=== PATIENT | male | born 1995 | race Caucasian/White ===

== ENCOUNTER 2024-08-10 08:33 | Emergency (ER) | payer MEDICAID, SELFPAY ==
[2024-08-10 08:34] VITALS: BMI 26.6
[2024-08-10 08:40] VITALS: BP 133/90; PULSE 104; RESP 16; TEMP 36.7; O2SAT 99; BMI 23.9
--- NOTE | 2024-08-10 09:00 | EDNOTE_ITS ---
ED Dental RME/HPI General Chief complaint: Allergic Reaction Stated complaint: MOUTH SWOLLEN SINCE LAST NIGHT Time Seen by Provider: 08/10/24 08:56 Source: patient, RN notes reviewed and old records reviewed Arrival date/time: 08/10/24 08:33 Mode of arrival: ambulatory Limitations: no limitations RME / HPI RME / HPI Narrative: 29yom presents to ED for mouth pain and sores. No sick contacts or recent illness. Patient reports pain with eating and swallowing. Denies fever, sob or vomiting. 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 Previous Rx's ?Medication ?Instructions ?Recorded acetaminophen 500 mg tablet 1,000 mg (2 x 500 mg) PO Q6H PRN 09/09/23 fever or pain #20 tabs ibuprofen 800 mg tablet 800 mg PO Q6H PRN pain #10 tabs 09/09/23 ondansetron 4 mg disintegrating 4 mg PO Q6H PRN nausea and 09/09/23 tablet vomiting #4 tabs hydrocodone 5 mg-acetaminophen 300 1 tab PO BID PRN pain #10 tabs 05/20/24 mg tablet ibuprofen 600 mg tablet 600 mg PO Q6H PRN fever or pain 08/10/24 #30 tabs lidocaine HCl 2 % mucosal solution See Rx Instructions .Route 08/10/24 (Lidocaine Viscous) .COMPLEX #60 mL valacyclovir 1 gram tablet 1,000 mg PO BID 7 days #14 tabs 08/10/24 amoxicillin 400 mg/5 mL oral 500 mg (6.25 mL) PO BID 10 days 08/11/24 suspension #125 mL ibuprofen 100 mg/5 mL oral 600 mg (30 mL) PO Q8H PRN fever or 08/11/24 suspension pain #473 mL Allergies Allergy/AdvReac Type Severity Reaction Status Date / Time Fish Containing Products Allergy Severe Swelling Verified 08/11/24 15:54 of Lip/Tongue/Throat peanut Allergy Severe Swelling Verified 08/11/24 15:54 of Lip/Tongue/Throat shrimp Allergy Severe SWELLING Verified 08/11/24 15:54 THROAT MARIJUANA Allergy Severe Swelling Uncoded 08/11/24 15:54 of Lip/Tongue/Throat Review of Systems Review of Systems Systems Reviewed: All systems reviewed, normal except as documented Constitutional Constitutional: Denies fever(s) ENT Ears, Nose, Mouth, and Throat: Reports mouth lesions and Reports sore throat Cardiovascular Cardiovascular: Denies dyspnea Respiratory Respiratory: Denies dyspnea Gastrointestinal Gastrointestinal: Reports nausea and Denies vomiting Past Medical History Past Medical History PSYCHO/SOCIAL: Positive Schizophrenia, Recreational Drug Use, Bipolar Disorder and Attention Deficit Hyperactivity Disorder Surgical History OTHER SURGICAL HX: Denies past surgical history Social History SMOKING STATUS: Current every day smoker SUBSTANCE USE: does not use ALCOHOL: Never ED Exam General Limitations: Present no limitations General appearance: Present alert and in no apparent distress Head Head exam: Present atraumatic and normocephalic Eye Eye exam: Present normal appearance, PERRL and EOMI ENT ENT exam: Present mucous membranes moist and other (Multiple ulcers to tongue and oral mucosa) Neck Neck exam: Present normal inspection and full ROM Chest Chest inspection: Present normal inspection and symmetric chest wall rise Respiratory Respiratory exam: Present normal lung sounds bilaterally; Absent respiratory distress, wheezes or stridor Cardiovascular Cardiovascular exam: Present regular rate and normal rhythm Extremities Exam Extremities exam: Present normal inspection and full ROM Neurological Exam Neurological exam: Present alert and oriented X3 Psychiatric Psychiatric exam: Present normal affect and normal mood Skin Skin exam: Present warm, dry, intact and normal color; Absent rash Course Quality Measures none Orders Category Date Time Status Acetaminophen Tab [Tylenol ES Tab] Med 08/10/24 09:02 Discontinued 1,000 mg PO X1 ONE Vital Signs Vital signs: Vital Signs Temperature 98.0 F 08/10/24 08:40 Pulse Rate 104 H 08/10/24 08:40 Respiratory Rate 16 08/10/24 08:40 Blood Pressure 133/90 H 08/10/24 08:40 Pulse Oximetry (%) 99 08/10/24 08:40 Oxygen Delivery Method Room Air 08/10/24 08:40 Dental / Oral MDM Narrative MDM Narrative:: 29yom presents to ED for mouth pain and sores. No sick contacts or recent illness. Patient reports pain with eating and swallowing. Denies fever, sob or vomiting. 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 Multiple oral ulcers on exam, suspect viral etiology. Patient is non-toxic appearing, afebrile, vitals are stable. Airway is patent and patient is able to tolerate po. Discussed symptomatic treatment, pain mgmt prn. Stable for dc, RTED precautions given. Patient data External records reviewed:: [facility] previous records (05/20/24 ED visit for toothache) Clinical information provided by:: patient Social determinants that could affect healthcare access:: other (specify) (poor access to healthcare) Patient has the following chronic illnesses:: bipolar, schizophrenia How is presenting disease/condition affected by chronic disease/condition?: uneffected by Evaluation data The following diagnostics were reviewed and interpreted by me:: other (specify) (none) Lab and/or radiology exams considered but not ordered:: none Interpretation Summary: na Medications / Prescriptions Medications or Prescriptions considered but not ordered:: no antibiotics recommended at [facility] time Medication administrations:: Medication Administration History Discontinued Medications Acetaminophen (Acetaminophen 500 Mg Tablet) 1,000 mg PO X1 ONE Stop: 08/10/24 09:03 Last Admin: 08/10/24 09:06 Dose: 1,000 mg Documented By: KF above medication administered in ED Consultations Consultation(s) initiated? (list below): No Diagnosis Dental Differential Diagnosis: gingival abscess, dental caries, toothache and aphthous ulcer Most likely diagnosis given after review of the tests above:: gingivostomatitis Admission Indicated Admission indicated?: not indicated Admission Request Was there a request for admission?: No Disposition Plan Disposition Plan: Discharge Discharge Attestation Discharge Attestation: The patient and all family members were given an opportunity to ask questions and understood the discharge instructions. Discharge instructions specifically effects, indications for sooner follow up or return to the emergency department, and the expected course of current diagnosis. Patient condition: Stable Discharge Plan Plan Patient Disposition: HOME (Self Care) Prescriptions/Referrals Prescriptions/Med Rec: New ibuprofen 600 mg tablet 600 mg PO Q6H PRN (Reason: fever or pain) Qty: 30 0RF valacyclovir 1 gram tablet 1,000 mg PO BID 7 Days Qty: 14 0RF lidocaine HCl [Lidocaine Viscous] 2 % solution See Rx Instructions .ROUTE .COMPLEX Qty: 60 0RF Rx Instructions: Apply topically to oral mucosa and tongue every 2-3 hours prn pain. No Action ondansetron 4 mg tablet,disintegrating 4 mg PO Q6H PRN (Reason: nausea and vomiting) Qty: 4 0RF ibuprofen 800 mg tablet 800 mg PO Q6H PRN (Reason: pain) Qty: 10 0RF acetaminophen 500 mg tablet 1,000 mg PO Q6H PRN (Reason: fever or pain) Qty: 20 0RF ibuprofen 100 mg/5 mL suspension 600 mg PO Q8H PRN (Reason: fever or pain) Qty: 473 0RF amoxicillin 400 mg/5 mL suspension for reconstitution 500 mg PO BID 10 Days Qty: 125 0RF hydrocodone-acetaminophen 5-300 mg tablet 1 tab PO BID MDD 10 mg PRN (Reason: pain) Qty: 10 0RF Problem List Clinical Impression: Gingivostomatitis Patient/Caregiver Discharge Instructions Education Materials: ED Canker Sore Additional Instructions: Magic mouthwash: Mix Maalox and Benadryl in 1:1 ratio (ie. 10ml maalox/10ml benadryl). Apply to oral mucosa and tongue every 4 hours as needed for mouth pain. Print Language: Upper Sorbian Stand Alone Forms: Ingrid Award Info., Patient Portal Info Letter PA/NURSING HOME DIRECTOR Supervising Physician PA/NURSING HOME DIRECTOR Supervising Physician: Cecille
[2024-08-10] MEDS: ACETAMINOPHEN 500 MG TABLET 1000 MG PO (09:06)
== END 2024-08-10 09:13 | disposition home or self-care (01) ==
PROVIDERS: Emergency Provider Emergency Medicine; PCP Physician Assistant
DX: K05.10 Chronic gingivitis, plaque induced (principal); F17.210 Nicotine dependence, cigarettes, uncomplicated
CPT/HCPCS: 99282; A9270

== ENCOUNTER 2024-08-11 15:52 | Emergency (ER) | payer MEDICAID, SELFPAY ==
[2024-08-11 15:52] VITALS: BMI 23.9
[2024-08-11 16:03] VITALS: BP 143/82; PULSE 97; RESP 16; TEMP 37.2; O2SAT 99
--- NOTE | 2024-08-11 16:12 | EDNOTE_ITS ---
ED Dental RME/HPI General Chief complaint: Dental/Oral/Throat Stated complaint: UNABLE TO SWALLOW PILLS NEEDS LIQUID FORM OF ABX Time Seen by Provider: 08/11/24 15:53 Arrival date/time: 08/11/24 15:52 29-year-old male presents emergency department today complains of sores to his tongue and mouth patient reports sore throat difficulty swallowing patient reports symptoms ongoing for last couple of days patient was evaluated last night and discharged home with antivirals Limitations: no limitations Related Data Previous Rx's ?Medication ?Instructions ?Recorded acetaminophen 500 mg tablet 1,000 mg (2 x 500 mg) PO Q6H PRN 09/09/23 fever or pain #20 tabs ibuprofen 800 mg tablet 800 mg PO Q6H PRN pain #10 tabs 09/09/23 ondansetron 4 mg disintegrating 4 mg PO Q6H PRN nausea and 09/09/23 tablet vomiting #4 tabs hydrocodone 5 mg-acetaminophen 300 1 tab PO BID PRN pain #10 tabs 05/20/24 mg tablet ibuprofen 600 mg tablet 600 mg PO Q6H PRN fever or pain 08/10/24 #30 tabs lidocaine HCl 2 % mucosal solution See Rx Instructions .Route 08/10/24 (Lidocaine Viscous) .COMPLEX #60 mL valacyclovir 1 gram tablet 1,000 mg PO BID 7 days #14 tabs 08/10/24 amoxicillin 400 mg/5 mL oral 500 mg (6.25 mL) PO BID 10 days 08/11/24 suspension #125 mL ibuprofen 100 mg/5 mL oral 600 mg (30 mL) PO Q8H PRN fever or 08/11/24 suspension pain #473 mL Allergies Allergy/AdvReac Type Severity Reaction Status Date / Time Fish Containing Products Allergy Severe Swelling Verified 08/11/24 15:54 of Lip/Tongue/Throat peanut Allergy Severe Swelling Verified 08/11/24 15:54 of Lip/Tongue/Throat shrimp Allergy Severe SWELLING Verified 08/11/24 15:54 THROAT MARIJUANA Allergy Severe Swelling Uncoded 08/11/24 15:54 of Lip/Tongue/Throat Review of Systems Review of Systems Systems Reviewed: All systems reviewed, normal except as documented Constitutional Constitutional: Reports system reviewed and no additional complaints, except as documented, Denies fever(s) and Denies headache(s) Eyes Eyes: Reports system reviewed and no additional complaints, except as documented and Denies blurry vision ENT Ears, Nose, Mouth, and Throat: Reports system reviewed and no additional complaints, except as documented, Denies headache(s), Reports mouth lesions, Reports mouth pain, Reports nasal congestion and Reports nasal discharge Cardiovascular Cardiovascular: Reports system reviewed and no additional complaints, except as documented, Denies chest pain and Denies dyspnea Respiratory Respiratory: Reports system reviewed and no additional complaints, except as documented, Denies chest congestion, Denies cough and Denies dyspnea Gastrointestinal Gastrointestinal: Reports system reviewed and no additional complaints, except as documented and Denies abdominal pain Integumentary/Breasts Skin/Breast: Reports system reviewed and no additional complaints, except as documented and Denies rash Neurologic Neurologic: Reports system reviewed and no additional complaints, except as documented, Reports as per HPI and Denies headache(s) Past Medical History Past Medical History NEUROLOGIC: Negative Neurological Disorders CARDIAC: Negative Cardiac Disorders or Congestive Heart Failure RESPIRATORY: Negative Chronic Obstructive Pulmonary Disease (COPD) GASTROINTESTINAL: Negative Gastrointestinal Disorders GENITOURINARY: Negative Genitourinary Disorders or Renal Disease MUSCULOSKELETAL: Negative Musculoskeletal Disorders ENDOCRINE: Negative Endocrine Disorders, Diabetes Mellitus Type 1 or Diabetes Mellitus Type 2 HEMATOLOGIC: Negative Blood Disorders PSYCHO/SOCIAL: Positive Schizophrenia, Recreational Drug Use, Bipolar Disorder and Attention Deficit Hyperactivity Disorder Surgical History SURGICAL: Negative Ear Surgery Social History SMOKING STATUS: Current every day smoker SUBSTANCE USE: does not use ED Exam General Limitations: Present no limitations General appearance: Present alert and in no apparent distress Head Head exam: Present atraumatic, normocephalic and normal inspection Eye Eye exam: Present normal appearance, PERRL and EOMI; Absent conjunctival injection ENT ENT exam: Present mucous membranes moist Expanded ENT Exam Mouth exam: Absent drooling or trismus Throat exam: Present tonsillomegaly and tonsillar exudate; Absent R peritonsillar mass, L peritonsillar mass or muffled voice Neck Neck exam: Present normal inspection, full ROM and trachea midline Chest Chest inspection: Present normal inspection and symmetric chest wall rise Respiratory Respiratory exam: Present normal lung sounds bilaterally Cardiovascular Cardiovascular exam: Present regular rate, normal rhythm and normal heart sounds Abdominal Exam Abdominal exam: Present soft and normal bowel sounds Extremities Exam Extremities exam: Present normal inspection and full ROM Back Exam Back exam: Present normal inspection and full ROM Neurological Exam Neurological exam: Present alert, oriented X3 and CN II-XII intact Psychiatric Psychiatric exam: Present normal affect and normal mood Skin Skin exam: Present warm, dry, intact and normal color Course Quality Measures none Vital Signs Vital signs: Vital Signs Temperature 98.9 F 08/11/24 16:03 Pulse Rate 97 08/11/24 16:03 Respiratory Rate 16 08/11/24 16:03 Blood Pressure 143/82 H 08/11/24 16:03 Pulse Oximetry (%) 99 08/11/24 16:03 Oxygen Delivery Method Room Air 08/11/24 16:03 O2 saturation 99% r/a wnl Dental / Oral MDM Narrative MDM Narrative:: 29-year-old male presents emergency department today complains of sores to his tongue and mouth patient reports sore throat difficulty swallowing patient reports symptoms ongoing for last couple of days patient was evaluated last night and discharged home with antivirals On exam patient does not appear ill or toxic in no acute distress Patient has skin sores in the mouth explained to the patient that after he finishes antibiotics he must follow-up with PCP for further evaluation of his skin sores Patient discharged home in no distress to follow-up with primary care doctor in the next 24 to 48 hours and for any worsening symptoms to return to the ER immediately Patient data External records reviewed:: [facility] previous records Clinical information provided by:: patient Social determinants that could affect healthcare access:: none Patient has the following chronic illnesses:: none How is presenting disease/condition affected by chronic disease/condition?: no chronic disease Evaluation data The following diagnostics were reviewed and interpreted by me:: other (specify) (N/A) Lab and/or radiology exams considered but not ordered:: Consider not ordered Interpretation Summary: N/A Medications / Prescriptions Medications or Prescriptions considered but not ordered:: Given Medication administrations:: Given Consultations Consultation(s) initiated? (list below): No Diagnosis Dental Differential Diagnosis: gingival abscess, dental caries, toothache and dental abscess Most likely diagnosis given after review of the tests above:: mouth sores Admission Indicated Admission indicated?: not indicated Admission Request Was there a request for admission?: No Disposition Plan Disposition Plan: Discharge Discharge Attestation Discharge Attestation: The patient and all family members were given an opportunity to ask questions and understood the discharge instructions. Discharge instructions specifically effects, indications for sooner follow up or return to the emergency department, and the expected course of current diagnosis. Patient condition: Stable Discharge Plan Plan Patient Disposition: HOME (Self Care) Disposition Comment: Stable Prescriptions/Referrals Prescriptions/Med Rec: New ibuprofen 100 mg/5 mL suspension 600 mg PO Q8H PRN (Reason: fever or pain) Qty: 473 0RF amoxicillin 400 mg/5 mL suspension for reconstitution 500 mg PO BID 10 Days Qty: 125 0RF No Action ondansetron 4 mg tablet,disintegrating 4 mg PO Q6H PRN (Reason: nausea and vomiting) Qty: 4 0RF ibuprofen 800 mg tablet 800 mg PO Q6H PRN (Reason: pain) Qty: 10 0RF acetaminophen 500 mg tablet 1,000 mg PO Q6H PRN (Reason: fever or pain) Qty: 20 0RF ibuprofen 600 mg tablet 600 mg PO Q6H PRN (Reason: fever or pain) Qty: 30 0RF valacyclovir 1 gram tablet 1,000 mg PO BID 7 Days Qty: 14 0RF lidocaine HCl [Lidocaine Viscous] 2 % solution See Rx Instructions .ROUTE .COMPLEX Qty: 60 0RF Rx Instructions: Apply topically to oral mucosa and tongue every 2-3 hours prn pain. hydrocodone-acetaminophen 5-300 mg tablet 1 tab PO BID MDD 10 mg PRN (Reason: pain) Qty: 10 0RF Problem List Clinical Impression: Oral infection Patient/Caregiver Discharge Instructions Additional Instructions: Please follow up with your primary care doctor in the next 24-48hrs for any worsening symptoms return here immediately Print Language: Scottish Stand Alone Forms: Ingrid Award Info., Patient Portal Info Letter PA/RADIO MESSAGE ROUTER Supervising Physician PA/RADIO MESSAGE ROUTER Supervising Physician: Dr. Oden
== END 2024-08-11 17:01 | disposition home or self-care (01) ==
LOC: SERX 16:20
PROVIDERS: Emergency Provider Emergency Medicine; PCP Physician Assistant
DX: J02.9 Acute pharyngitis, unspecified (principal); F17.210 Nicotine dependence, cigarettes, uncomplicated
CPT/HCPCS: 99281

== ENCOUNTER 2025-04-07 17:12 | Emergency (ER) | payer MEDICAID, SELFPAY ==
[2025-04-07 17:12] VITALS: BP 142/95; PULSE 82; RESP 16; TEMP 36.7; O2SAT 97
[2025-04-07 18:09] VITALS: BMI 20.5
--- NOTE | 2025-04-07 18:16 | EKG_ITS ---
[facility] Test Date: 2025-04-07 Pat Name: SIVAN LEE Department: Room: - Gender: Male [employer] Operator: : 1995 Requested By: Anish Subramanian Order Number: [id number] Reading MD: Anish Subramanian Measurements Intervals Padroni Rate: 64 P: 45 MS: 159 QRS: 79 QRSD: 95 T: 56 QT: 385 QTc: 399 Interpretive Statements SINUS RHYTHM WITH SINUS ARRHYTHMIA Compared to ECG 06/23/2022 15:39:09 No significant changes /store/S0/[id number]
--- NOTE | 2025-04-07 18:16 | PD.EDADULT ---
ED General RME/HPI General Chief complaint: Suicidal Stated complaint: MENTAL EVAL Time Seen by Provider: 04/07/25 18:06 Arrival date/time: 04/07/25 17:12 RME / HPI RME / HPI narrative: 30-year-old male with past medical history of schizophrenia comes into the ED brought in by PD due to public disturbance and suicidal ideation. Patient states that he has a history of schizophrenia and he was taking BuSpar, Adderall, and another medication which he did not accurately name. Patient states that he has been hearing voices for quite some time now and that today he was hearing the voices tell him to kill himself that he was not aware of anything. He states that earlier he did have suicidal ideation and he had a plan which included him banging his head against something and crushing his head. At the time of assessment patient seems withdrawn, flat affect, low and slow speech, and avoidant. Patient states that at this time he does not have any suicidal ideation, but states that he has tried in the past to harm himself. He also states that he does not have any homicidal ideation, but states that he can still hear the voices and they have become really loud. He also mentioned that he has some visual hallucinations, but is not able to accurately describe these. Otherwise denies any other complaint at this time. Admit smoking, denies drugs or alcoho Related Data Previous Rx's ?Medication ?Instructions ?Recorded acetaminophen 500 mg tablet 1,000 mg (2 x 500 mg) PO Q6H PRN 09/09/23 fever or pain #20 tabs ibuprofen 800 mg tablet 800 mg PO Q6H PRN pain #10 tabs 09/09/23 ondansetron 4 mg disintegrating 4 mg PO Q6H PRN nausea and 09/09/23 tablet vomiting #4 tabs hydrocodone 5 mg-acetaminophen 300 1 tab PO BID PRN pain #10 tabs 05/20/24 mg tablet ibuprofen 600 mg tablet 600 mg PO Q6H PRN fever or pain 08/10/24 #30 tabs lidocaine HCl 2 % mucosal solution See Rx Instructions .Route 08/10/24 (Lidocaine Viscous) .COMPLEX #60 mL ibuprofen 100 mg/5 mL oral 600 mg (30 mL) PO Q8H PRN fever or 08/11/24 suspension pain #473 mL Allergies Allergy/AdvReac Type Severity Reaction Status Date / Time Fish Containing Products Allergy Severe Swelling Verified 08/11/24 15:54 of Lip/Tongue/Throat peanut Allergy Severe Swelling Verified 08/11/24 15:54 of Lip/Tongue/Throat shrimp Allergy Severe SWELLING Verified 08/11/24 15:54 THROAT MARIJUANA Allergy Severe Swelling Uncoded 08/11/24 15:54 of Lip/Tongue/Throat Review of Systems Review of Systems Systems Reviewed: All systems reviewed, normal except as documented Past Medical History Past Medical History NEUROLOGIC: Negative Neurological Disorders CARDIAC: Negative Cardiac Disorders or Congestive Heart Failure RESPIRATORY: Negative Chronic Obstructive Pulmonary Disease (COPD) GASTROINTESTINAL: Negative Gastrointestinal Disorders GENITOURINARY: Negative Genitourinary Disorders or Renal Disease MUSCULOSKELETAL: Negative Musculoskeletal Disorders ENDOCRINE: Negative Endocrine Disorders, Diabetes Mellitus Type 1 or Diabetes Mellitus Type 2 HEMATOLOGIC: Negative Blood Disorders PSYCHO/SOCIAL: Positive Schizophrenia, Recreational Drug Use, Bipolar Disorder and Attention Deficit Hyperactivity Disorder Surgical History SURGICAL: Negative Ear Surgery Social History SMOKING STATUS: Current every day smoker SUBSTANCE USE: does not use ED Exam Narrative Physical exam: Gen: A&O X 2 (not to time), Disheveled, HEENT: NCAT, EOMI, Pupils reactive BERNA, not icteric. External ears normal. No rhinorrhea. Moist mucous membranes. Neck: Supple, full range of motion, no observable masses, No meningeal sign. Lungs: No Respiratory distress, clear bilateral. CV: RRR, no murmurs. Abdomen: Soft, nondistended, No rebound tenderness. MSK: No joint swelling, no redness, peripheral pulses presents, lumbar with no edema. Skin: No rashes, petechiae, lesions. Neuro: No focal neurological deficits appreciated, sensory and motor intact. Psych: Avoidant, withdrawn, flat affect Course Quality Measures none Orders Category Date Time Status Mortar Worker Q4H START 00 Care 04/07/25 18:16 Active Continuous Pulse Oximetry NOW Care 04/07/25 18:16 Completed EKG (ED ONLY) *Do not use* NOW Care 04/07/25 18:16 Completed Nurse Swallow Screen X1 Care 04/07/25 18:17 Active Diet Regular Diet 04/07/25 Dinner Active EKG (ED Only) Stat Exams 04/07/25 18:16 Draft Alcohol, Urine Stat Lab 04/07/25 19:46 Completed CBC [CBC] Stat Lab 04/07/25 18:39 Completed CMP [Comprehensive Metabolic Panel] Stat Lab 04/07/25 18:39 Completed Drug Screen,Urine Stat Lab 04/07/25 19:46 Completed Lactic Acid [Lactate (Lactic Acid)] Stat Lab 04/07/25 18:39 Completed Magnesium Stat Lab 04/07/25 18:39 Completed Troponin I Stat Lab 04/07/25 18:39 Completed UA [Urinalysis] Stat Lab 04/07/25 19:46 Completed Late Tray Request Routine Oth 04/07/25 18:17 Active Vital Signs Vital signs: Vital Signs Temperature 98.1 F 04/07/25 17:12 Pulse Rate 82 04/07/25 17:12 Respiratory Rate 16 04/07/25 17:12 Blood Pressure 142/95 H 04/07/25 17:12 Pulse Oximetry (%) 97 04/07/25 17:12 Oxygen Delivery Method Room Air 04/07/25 17:12 Discharge Plan Prescriptions/Referrals Prescriptions/Med Rec: No Action ondansetron 4 mg tablet,disintegrating 4 mg PO Q6H PRN (Reason: nausea and vomiting) Qty: 4 0RF ibuprofen 800 mg tablet 800 mg PO Q6H PRN (Reason: pain) Qty: 10 0RF acetaminophen 500 mg tablet 1,000 mg PO Q6H PRN (Reason: fever or pain) Qty: 20 0RF ibuprofen 600 mg tablet 600 mg PO Q6H PRN (Reason: fever or pain) Qty: 30 0RF lidocaine HCl [Lidocaine Viscous] 2 % solution See Rx Instructions .ROUTE .COMPLEX Qty: 60 0RF Rx Instructions: Apply topically to oral mucosa and tongue every 2-3 hours prn pain. ibuprofen 100 mg/5 mL suspension 600 mg PO Q8H PRN (Reason: fever or pain) Qty: 473 0RF hydrocodone-acetaminophen 5-300 mg tablet 1 tab PO BID MDD 10 mg PRN (Reason: pain) Qty: 10 0RF Referrals: No Primary/Family,Physician [Primary Care Provider] - In 1 week Problem List Clinical Impression: Drug psychosis Patient/Caregiver Discharge Instructions Print Language: Chinese MDM Narrative MDM hospital course: Patient was seen and evaluated by myself upon arrival. Diagnostic labs and imaging were ordered. Patient also 5150 hold and will require crisis team evaluation. Patient's labs were unremarkable, still pending urine and U tox. Patient's urine tox screen was positive for marijuana and meth. This could have likely contributed to the patient's psychotic episode. At this time patient is medically cleared to be evaluated by crisis team. Patient remained stable throughout the whole night and calm. 6:00: [facility], Dr. Demar[facility]. Case disclosed with Attending Dr. Jori Subramanian PGY2 Disclaimer: Even though this this note was dictated by speech recognition and even though it was carefully revised there may still be minor errors in staff cytotechnologist due to voice recognition software.
[2025-04-07 18:49] LABS: Lactate (Lactic Acid) 1.0 mMol/L (0.4-2.0)
[2025-04-07 18:51] LABS: Basophils # (Auto) 0.1 Thou/mm3 (0.0-0.2); Basophils % (Auto) 1 % (0-2.5); Eosinophils # (Auto) 0.3 Thou/mm3 (0.0-0.5); Eosinophils % (Auto) 4 % (0-10); Hematocrit 42.3 % (41.0-53.0); Hemoglobin 14.4 g/dL (13.5-16.0); Immature Granulocytes Auto 0.02 Thou/mm3 (0.00-0.00); Lymphocytes # (Auto) 2.4 Thou/mm3 (1.0-4.8); Lymphocytes % (Auto) 29 % (10-50); Mean Corpuscular HGB Conc 34.0 g/dl (31.0-37.0); Mean Corpuscular Hemoglobin 28.7 pg (25.0-35.0); Mean Corpuscular Volume 84 fL (80-100); Monocytes # (Auto) 0.8 Thou/mm3 (0.0-0.8); Monocytes % (Auto) 10 % (0-12); Neutrophils # (Auto) 4.5 Thou/mm3 (1.8-7.7); Neutrophils % (Auto) 56 % (37-80); Nucleated Red Blood Cell # 0.00 Thou/mm3 (0.00-0.00); Nucleated Red Blood Cell % 0 /100 WBC (0); Platelet Count 150 Thou/mm3 (140-440); RDW Standard Deviation 43.1 fL (35.1-43.9); Red Blood Count 5.02 Miln/mm3 (4.50-5.90); White Blood Count 8.1 Thou/mm3 (3.8-10.6)
[2025-04-07 18:54] VITALS: PULSE 76
[2025-04-07 19:11] LABS: Alanine Aminotransferase 17 U/L (10-49); Albumin, Serum 4.1 gm/dL (3.5-5.0); Albumin/Globulin Ratio 1.5 (1.2-2.2); Alkaline Phosphatase 46 U/L (46-116); Anion Gap 7 (7-16); Aspartate Amino Transferase 26 U/L (0-34); BUN/Creatinine Ratio 10 Ratio (12-20); Bilirubin,Total 0.4 mg/dL (0.3-1.2); Blood Urea Nitrogen 10 mg/dL (9-23); Calcium 8.9 mg/dL (8.3-10.6); Calcium (Corrected) 8.9 mg/dL (8.5-10.1); Carbon Dioxide 26.8 mMol/L (20.0-31.0); Chloride 108 mMol/L (98-107); Creatinine (Component) 1.0 mg/dL (0.6-1.3); Estimated Creatinine Clearance 94.4 mL/min (>60); Globulin 2.8 gm/dL (2.3-3.5); Glucose 82 mg/dL (74-106); Magnesium 1.8 mg/dL (1.6-2.6); Osmolality,Calculated 281 (275-295); Potassium 3.5 mMol/L (3.4-5.1); Sodium 142 mMol/L (136-145); Total Protein 6.9 gm/dL (5.7-8.2); Troponin I < 0.020 ng/mL (0.0-0.045); eGFR > 60 See Note
--- NOTE | 2025-04-07 19:12 | PC.CC ---
Pt is a 30 yo male who was BIB [facility] on a 5150 hold for making statements that he wanted to end his life, when he was getting arrested for several warrants. [facility] then brought pt to the ED on a 5150 Hold. Pt is pending medical clearance and is pending evaluation.
[2025-04-07 19:37] VITALS: BP 116/78; PULSE 78; RESP 17; TEMP 36.6; O2SAT 98
[2025-04-07 19:52] LABS: Collection Type, Urine Voided; Squamous Epithelial Cell,Urine 0 /hpf (0-5)
[2025-04-07 20:06] LABS: Bilirubin,Urine 1+ (Negative); Blood,Urine Negative (Negative); Clarity,Urine Clear (Clear/Hazy); Color,Urine Yellow (Lt Yel-Yel); Glucose, Urine Negative (Negative); Ketones,Urine Trace (Negative); Leukocyte Esterase,Urine Negative (Negative); Nitrite,Urine Negative (Negative); PH,Urine 6.0 (5.0-7.0); Protein,Urine 1+ (Neg - Trace); RBC,Urine < 1 /hpf (0-3); Specific Gravity,Urine 1.046 (1.001-1.035); Urobilinogen,Urine 3.0 mg/dL (0.0-1.0); WBC,Urine 1 /hpf (0-5)
[2025-04-07 20:10] LABS: Amphetamine/Methamp Scrn,U Positive (Negative); Barbiturate Screen,Urine Negative (Negative); Benzodiazepines Screen,Urine Negative (Negative); Benzoylecgonine Screen, Ur Negative (Negative); Fentanyl Screen,Urine Negative (Negative); Opiate Screen,Urine Negative (Negative); THC Screen,Urine Positive (Negative)
[2025-04-07 20:34] LABS: Alcohol, Urine Negative (Negative)
[2025-04-08 00:08] VITALS: BP 101/74; PULSE 67; RESP 18; TEMP 36.6; O2SAT 98
[2025-04-08 04:01] VITALS: BP 121/80; PULSE 55; RESP 19; TEMP 36.5; O2SAT 98
[2025-04-08 06:31] VITALS: BP 126/78; PULSE 71; RESP 19; TEMP 36.3; O2SAT 98
--- NOTE | 2025-04-08 07:00 | EDNOTE_ITS ---
Emergency Room Addendum <Sandra Oneal - Last Filed: 04/08/25 09:48> Addendum Narrative: 0600: Care assumed from Dr. Hsieh, the previous shift emergency physician. Past medical, surgical, social and family history reviewed. Vitals and home medications reviewed. I will assume the care of the patient at this time, pending mental health evaluation and final disposition. Please refer to the emergency department record for history and examination from initial visit.?The following addendum documentation note is intended to reflect any pending information, findings, or radiology results not included in the patient?s initial chart. 0805: Social work advised that 5150 hold has been upheld. They will look for placement. Patient has been accepted by Dr. Cannon at [facility]. EMS p/u 11:50h. <Helene Demarco MD - Last Filed: 04/08/25 09:59> Addendum Narrative: 0600: Care assumed from Dr. Hsieh, the previous shift emergency physician. Past medical, surgical, social and family history reviewed. Vitals and home medications reviewed. I will assume the care of the patient at this time, pending mental health evaluation and final disposition. Please refer to the emergency department record for history and examination from initial visit.?The following addendum documentation note is intended to reflect any pending information, findings, or radiology results not included in the patient?s initial chart. 0805: Social work advised that 5150 hold has been upheld. They will look for placement.
--- NOTE | 2025-04-08 07:36 | PC.NURSE ---
senior director creative services at bedside speaking with patient. Rn assumed care of patient at this time. Patient is alert, laying in bed, fidgeting, not wanting to answer questions. Patient with sitter.
--- NOTE | 2025-04-08 07:40 | PC.NURSE ---
Patient did not want to answer transition social worker questions and now is yelling out curse words to anyone passing by.
[2025-04-08 08:16] VITALS: BP 139/79; PULSE 66; RESP 18; TEMP 36.6; O2SAT 99
--- NOTE | 2025-04-08 08:19 | PC.CC ---
Patient is a 30 year-old male who presents to the hospital on a 5150-Hold for Danger to Self by [place] [employer] Officer Luz. It was reported by Officer Luz that patient was walking through businesses yelling. Per Officer, patient disclosed he has Schizophrenia and is not compliant with medication, hearing voices that are telling him to kill himself, and feelings of depression. Sofía MARIA met with patient face to face introduced self, role, and reason for visit to patient. Patient appears to be alert and oriented to self, location, and situation. INTERNET PROJECT MANAGER explained limits of confidentiality to the patient. Patient presented as agitated and became irate towards this typewriter assembler when attempting to complete mental health assessment. Patient would not engage in assessment. INTERNET PROJECT MANAGER, inquired if collateral information could be obtained by his mother, Kennedi Valdivia . Patient stated he has not had contact with her in years. Sofía MARIA made telephone contact with [facility] staff report patient was discharged from services since October 2022. Patient?s toxicology was positive for amphetamines and marijuana. Patient?s Trent Screening was High-Risk. Upon clinical consultation with Mikayla MARIA patient?s 5150-hold will be upheld for Danger to Self. Patient was provided with advisement of 5150-hold and patient?s rights handbook. INTERNET PROJECT MANAGER provided update of 5150-hold being upheld and LPS placement of patient to medical staff. INTERNET PROJECT MANAGER to send referral packet to [facility] Facilities via [employer].
--- NOTE | 2025-04-08 09:21 | PC.NURSE ---
[facility] accepted to [address], Dr Clinton, arrival eta of 1300 per Shefali FARMER. Rn informed JANAE Knight.
--- NOTE | 2025-04-08 09:40 | PC.CC ---
Patient was accepted to [facility], [address], provider Dr. Clinton. Accepting information was provided by Shefali. [facility], provided patient with accepting information. [facility], provided medical staff with discharge plan to [facility]. ETA p/u 1150.
[2025-04-08 11:13] VITALS: BP 131/86; PULSE 81; RESP 18; TEMP 36.8; O2SAT 95
--- NOTE | 2025-04-08 12:57 | PC.NURSE ---
Report given to Digital Marketing Assistant Clari, ETA given to [facility], patient transferred at this time.
== END 2025-04-08 12:45 ==
DX: F20.9 Schizophrenia, unspecified (principal); R45.851 Suicidal ideations; I49.8 Other specified cardiac arrhythmias
CPT/HCPCS: 36415; 80053; 80307; 80320; 81001; 83605; 83735; 84484; 85025; 93005; 96127; 99283; G0480

== ENCOUNTER 2025-08-12 21:14 | Emergency (ER) | payer MEDICAID, SELFPAY ==
[2025-08-12 21:15] VITALS: BMI 27.6
--- NOTE | 2025-08-12 21:22 | XR_ITS ---
Examination: Foot, right, 3 views Technique: AP, oblique, lateral views foot, 3 views Date and time of exam: August 12, 2025 2137 hours INDICATIONS: Injury to the foot today, foot pain. FINDINGS: No acute fracture No dislocation No foreign body IMPRESSION: No acute fracture
[2025-08-12 22:08] VITALS: BP 159/88; PULSE 78; RESP 18; TEMP 36.9; O2SAT 98
--- NOTE | 2025-08-12 22:15 | EDNOTE_ITS ---
Lower Extremity Injury RME/HPI General Chief Complaint: Ankle/Foot Injury Stated Complaint: I THINK I HAVE A FRACTURE FOOT, RIGHT Time Seen by Provider: 08/12/25 22:10 Arrival date/time: 08/12/25 21:14 30-year-old male patient came in for evaluation regarding right foot pain. Onset of symptoms since last night, patient accidentally jumped off his bunk bed, resulting the pain to the right foot more on the midfoot, described as dull ache, severity mild. Patient is ambulatory with mild limping denies any other injury no medication was taken prior to ER visit. Related Data Previous Rx's ?Medication ?Instructions ?Recorded acetaminophen 500 mg tablet 1,000 mg (2 x 500 mg) PO Q 6H PRN 09/09/23 fever or pain #20 tabs ibuprofen 800 mg tablet 800 mg PO Q6H PRN pain #10 t abs 09/09/23 ondansetron 4 mg disintegrating 4 mg PO Q6H PRN nausea and 09/09/23 tablet vomiting #4 tabs hydrocodone 5 mg-acetaminophen 300 1 tab PO BID PRN pa in #10 tabs 05/20/24 mg tablet ibuprofen 600 mg tablet 600 mg PO Q6H PRN fever or p ain 08/10/24 #30 tabs lidocaine HCl 2 % mucosal solution See Rx Instructions .Route 08/10/24 (Lidocaine Viscous) .COMPLEX #60 mL ibuprofen 100 mg/5 mL oral 600 mg (30 mL) PO Q8H PRN f ever or 08/11/24 suspension pain #473 mL ibuprofen 800 mg tablet 800 mg PO TID PRN pain #30 t abs 08/12/25 Allergies Allergy/AdvReac Type Severity Reaction Status Date / Time Fish Containing Products Allergy Severe Swelling Verified 08/12/25 21:15 of Lip/Tongue/Throat peanut Allergy Severe Swelling Verified 08/12/25 21:15 of Lip/Tongue/Throat shrimp Allergy Severe SWELLING Verified 08/12/25 21:15 THROAT MARIJUANA Allergy Severe Swelling Uncoded 08/12/25 21:15 of Lip/Tongue/Throat Review of Systems Review of Systems Narrative Review of Systems: Review of system reviewed and within normal limits except mentioned in HPI ED Exam Narrative Physical exam: VITAL SIGNS: Reviewed. GENERAL APPEARANCE: Alert and interactive, follows commands, no acute distress, HEAD AND FACE: Non-traumatic. ENT: PERRL, pink conjunctivitis, eyelid no trauma, Mucous membrane moist. NECK: Supple, nontender, no nuchal rigidity. CHEST: No tenderness, no crepitus, no paradoxical movement, no retractions. LUNGS: Clear, well ventilated, symmetric, no rales, no wheezing, no ronchi, no stridor, good breath sounds bilaterally. HEART: Regular rate, regular rhythm, no murmur, no gallops. ABDOMEN: Soft, positive bowel sounds, nondistended, no guarding, nontender, no rebound, no masses, RECTAL: Deferred. GENITAL: Deferred. NEUROLOGICAL: Gross motor function intact sensory function intact, Appropriate for age. MUSCULOSKELETAL: low back nontender, full range of motion. EXTREMITIES: Right foot tenderness, no swelling no deformity no bruising, full range of motion. SKIN: Color pink, dry, no rash, no lacerations, no abrasions, no contusions. LYMPHATICS: Deferred. Course Quality Measures none Orders Category Date Time Status XR foot comp RT min 3V Stat Exams 08/12/25 21:22 Taken Ibuprofen Tab [Motrin Tab] Med 08/12/25 22:12 Discontinued 800 mg PO X1 ONE Vital Signs Vital signs: Vital Signs Temperature 98.4 F 08/12/25 22:08 Pulse Rate 78 08/12/25 22:08 Respiratory Rate 18 08/12/25 22:08 Blood Pressure 159/88 H 08/12/25 22:08 Pulse Oximetry (%) 98 08/12/25 22:08 Oxygen Delivery Method Room Air 08/12/25 22:08 Extremity Injury, Lower MDM Narrative MDM Narrative:: 30-year-old male patient came in for evaluation regarding right foot pain. Onset of symptoms since last night, patient accidentally jumped off his bunk bed, resulting the pain to the right foot more on the midfoot, described as dull ache, severity mild. Patient is ambulatory with mild limping denies any other injury no medication was taken prior to ER visit. X-ray of the foot came back unremarkable. No fracture no dislocation noted. Results discussed with the patient. Patient stable for discharge home Patient data External records reviewed:: None Clinical information provided by:: patient Social determinants that could affect healthcare access:: none Patient has the following chronic illnesses:: None How is presenting disease/condition affected by chronic disease/condition?: no chronic disease Evaluation data The following diagnostics were reviewed and interpreted by me:: radiology exam(s) Lab and/or radiology exams considered but not ordered:: None Interpretation Summary: See above Medications / Prescriptions Medications or Prescriptions considered but not ordered:: None Medication administrations:: Medication Administration History Discontinued Medications Ibuprofen (Ibuprofen Tab 400 Mg Tablet) 800 mg PO X1 ONE Stop: 08/12/25 22:13 Motrin Consultations Consultation(s) initiated? (list below): No Diagnosis Extremity Injury, Lower Differential Diagnosis: ankle sprain and strain and ot her (Foot fracture foot dislocation foot pain) Most likely diagnosis given after review of the tests above:: Foot pain Admission Indicated Admission indicated?: not indicated Admission Request Was there a request for admission?: No Disposition Plan Disposition Plan: Discharge Discharge Attestation Discharge Attestation: The patient was given an opportunity to ask questions and understood the discharge instructions. Discharge instructions specifically effects, indications for sooner follow up or return to the emergency department, and the expected course of current diagnosis. Patient condition: Stable Discharge Plan Plan Patient Disposition: HOME (Self Care) Discharge Disposition comment: Stable Prescriptions/Referrals Prescriptions/Med Rec: New ibuprofen 800 mg tablet 800 mg PO TID PRN (Reason: pain) Qty: 30 0RF No Action ondansetron 4 mg tablet,disintegrating 4 mg PO Q6H PRN (Reason: nausea and vomiting) Qty: 4 0RF ibuprofen 800 mg tablet 800 mg PO Q6H PRN (Reason: pain) Qty: 10 0RF acetaminophen 500 mg tablet 1,000 mg PO Q6H PRN (Reason: fever or pain) Qty: 20 0RF ibuprofen 600 mg tablet 600 mg PO Q6H PRN (Reason: fever or pain) Qty: 30 0RF lidocaine HCl [Lidocaine Viscous] 2 % solution See Rx Instructions .ROUTE .COMPLEX Qty: 60 0RF Rx Instructions: Apply topically to oral mucosa and tongue every 2-3 hours prn pain. ibuprofen 100 mg/5 mL suspension 600 mg PO Q8H PRN (Reason: fever or pain) Qty: 473 0RF hydrocodone-acetaminophen 5-300 mg tablet 1 tab PO BID MDD 10 mg PRN (Reason: pain) Qty: 10 0RF Problem List Clinical Impression: Acute foot pain Patient/Caregiver Discharge Instructions Discharge Activity: activity as tolerated Education Materials: Understanding the Pain Response Additional Instructions: Thank you for the opportunity for serving you today. You are stable for discharged . You are advised to: Follow-up with your PCP in 1 to 2 days Return to ED for worsening of symptoms Increase oral fluids Take medication as prescribed Print Language: East Timorese Stand Alone Forms: Ingrid Award Info., Patient Portal Info Letter PA/GROUNDS CLEANER Supervising Physician MARY/DAMION Supervising Physician: MD Dank
[2025-08-12] MEDS: IBUPROFEN TAB 400 MG TABLET 800 MG PO (22:49)
== END 2025-08-12 22:51 | disposition home or self-care (01) ==
LOC: SERX 22:55
PROVIDERS: Emergency Provider Emergency Medicine; PCP Physician Assistant Medical
DX: S99.921A Unspecified injury of right foot, initial encounter (principal); W06.XXXA Fall from bed, initial encounter
CPT/HCPCS: 73630; 99282; A9270